=== PATIENT | female | born 1960 | race African-American/Black ===

== ENCOUNTER 2024-10-06 07:25 | Outpatient (CLI) | payer MEDICARE, MEDICAID, SELFPAY ==
--- OUTSIDE RECORDS SUMMARY | 2024-10-06 07:30 | XMS_ITS | Data Portability ---
Author Organization [place] - [employer], Main Office Address [address] [place] [address] Assessment Encounter Date Assessment Date Assessment LastModified by Organization Details LastModified Time 10/15/2023 10/15/2023 Assessment: Nicotine smoke: 03/24 ppd [id number] = 6 pack years Rhinitis Cough Dyspnea RUL consolidation Plan: The following were reviewed and explained to the patient: primary care/referral note [facility] hospitalization 10/06/23 - 10/08/23 fever of 101 and pleuritic chest pain -> RUL consolidation -> discharged on azithromycin and cefdinir until 10/12/[address] 10/04/23 no P. E., 5 mm EULALIO calcified granuloma, RUL consolidation We will obtain old records from Dr. Macario Simpson and [facility]. Repeat chest CT to ensure resolution of RUL consolidation. Cough/Dyspnea workup will be done as follows: Respiratory allergen panel for [facility] Serum IgE Serum total IgG, IgG1, IgG2, IgG3, IgG4 Eseyh-0-eisiytaugh n phenotype and level TB stimulated gamma interferon B-type natriuretic peptide (BNP) Eosinophil count Complete pulmonary function testing (PFT) Advised to continue not to smoke. Continue albuterol HFA as needed. Continue Symbicort HFA 160/4.5 mcg 2 puffs BID. Gargle after use. The patient does not know how to accurately administer the inhalers. Today, the patient was shown how to take these medications. The proper technique for delivering these medications was instructed. The patient expressed a clear understanding and demonstrated back how to use these medications. Without the proper technique, the patient will not reap the benefits of these medications as the contents will not reach the lower airways as intended to be. Adherence to therapy is advocated. Nonadherence may lead to treatment failure, further progression of the condition, and other complications. Hospitals admissions are often the result of individuals not taking prescription medications accurately. Alternatively, greater adherence to medication regimens have shown to lower rates of hospitalization and decrease total medical costs in patients with chronic medical conditions. Advocated influenza vaccination annually and pneumonia vaccination GEORGINA. Advocated weight loss through diet and exercise. Patient's ideal body weight according to height and gender is up to 110 lbs. Encouraged patient to adjust caloric intake to maintain/achieve ideal body weight, emphasizing on fruits, vegetables, whole grains, and fat-free or low-fat products. These include lean meats, poultry, fish, beans, eggs, and nuts and foods that are low in saturated fats, trans-fats, cholesterol, salt (sodium), and glycemic index. Stressed the importance of regular exercise up to the patient's capacity limits. In this case, we recommend 20 min daily walking, 2 days a week of resistance training. Patient to monitor BP daily and bring records to PCP for further management. Follow-up: [address] and PFT Not available 10/15/2023 10:29:52 01/13/2024 01/13/2024 Assessment: Nicotine smoke: 03/24 ppd [id number] = 6 pack years Rhinitis RUL consolidation, resolving 3 mm RUL nodule Plan: The following were reviewed and explained to the patient: [facility] hospitalization 10/06/23 - 10/08/23 fever of 101 and pleuritic chest pain -> RUL consolidation -> discharged on azithromycin and cefdinir until 10/12/23 Lab data 10/15/[address] 10/04/23 no P. E., 5 mm EULALIO calcified granuloma, RUL consolidation Chest CT 10/30/23 significantly decreased RUL consolidation, 3 mm RML nodule PFT 12/17/23 nl FEV1/FVC, FEV1 1.59 L (97%), BD 50 mL = 4%, TLC 3.81 L (99%), RV 1.78 L (121%), DLCO 55%, DLCO/VA 106% Repeat chest CT and methacholine challenge testing ordered. Differential diagnoses for pulmonary nodule: 1. malignant tumor 2. benign tumor 3. inflammatory processes 4. infectious process (viral, atypical bacterial, fungal, atypical mycobacterial) The Fleischner Society pulmonary nodule recommendations below pertain to the follow-up and management of indeterminate pulmonary nodules detected incidentally on CT and are published by the Fleischner Society. The guideline does not apply to lung cancer screening, patients younger than 35 years, or patients with a history of primary cancer or immunosuppression. These recommendations reflect the 2017 revision 4, which supersedes prior versions published in 2005 and 2013. Single solid nodule <6 mm (<100 mm3) *low-risk patients: no routine follow-up required *high-risk patients: optional CT at 12 months (particularly with suspicious nodule morphology and/or upper lobe location) Single solid nodule 6-8 mm (100-250 mm3) *low-risk patients: CT at 6-12 months, then consider CT at 18-24 months *high-risk patients: CT at 6-12 months, then CT at 18-24 months Single solid nodule >8 mm (>250 mm3) *low-risk and high-risk patients: consider CT at 3 months, PET/CT, or tissue sampling Advised to continue not to smoke. Continue albuterol HFA as needed. Continue Symbicort HFA 160/4.5 mcg 2 puffs BID. Gargle after use. The patient does not know how to accurately administer the inhalers. Today, the patient was shown how to take these medications. The proper technique for delivering these medications was instructed. The patient expressed a clear understanding and demonstrated back how to use these medications. Without the proper technique, the patient will not reap the benefits of these medications as the contents will not reach the lower airways as intended to be. Adherence to therapy is advocated. Nonadherence may lead to treatment failure, further progression of the condition, and other complications. Hospitals admissions are often the result of individuals not taking prescription medications accurately. Alternatively, greater adherence to medication regimens have shown to lower rates of hospitalization and decrease total medical costs in patients with chronic medical conditions. Advocated influenza vaccination annually and pneumonia vaccination GEORGINA. Advocated weight loss through diet and exercise. Patient's ideal body weight according to height and gender is up to 110 lbs. Encouraged patient to adjust caloric intake to maintain/achieve ideal body weight, emphasizing on fruits, vegetables, whole grains, and fat-free or low-fat products. These include lean meats, poultry, fish, beans, eggs, and nuts and foods that are low in saturated fats, trans-fats, cholesterol, salt (sodium), and glycemic index. Stressed the importance of regular exercise up to the patient's capacity limits. In this case, we recommend 20 min daily walking, 2 days a week of resistance training. Patient to monitor BP daily and bring records to PCP for further management. Follow-up: 1 week after methacholine challenge testing and chest CT Not available 01/13/2024 09:45:43 07/13/2024 07/13/2024 Assessment: Nicotine smoke: 03/24 ppd [id number] = 6 pack years Rhinitis RUL consolidation, resolving 3 mm RML nodule Plan: The following were reviewed and explained to the patient: [facility] hospitalization 10/06/23 - 10/08/23 fever of 101 and pleuritic chest pain -> RUL consolidation -> discharged on azithromycin and cefdinir until 10/12/23 Lab data 10/15/[address] 10/04/23 no P. E., 5 mm EULALIO calcified granuloma, RUL consolidation Chest CT 10/30/23 significantly decreased RUL consolidation, 3 mm RML nodule PFT 12/17/23 nl FEV1/FVC, FEV1 1.59 L (97%), BD 50 mL = 4%, TLC 3.81 L (99%), RV 1.78 L (121%), DLCO 55%, DLCO/VA 106% Methacholine challenge testing 07/13/24 (-) methacholine challenge up to level 5 Differential diagnoses for pulmonary nodule: 1. malignant tumor 2. benign tumor 3. inflammatory processes 4. infectious process (viral, atypical bacterial, fungal, atypical mycobacterial) The Fleischner Society pulmonary nodule recommendations below pertain to the follow-up and management of indeterminate pulmonary nodules detected incidentally on CT and are published by the Fleischner Society. The guideline does not apply to lung cancer screening, patients younger than 35 years, or patients with a history of primary cancer or immunosuppression. These recommendations reflect the 2017 revision 4, which supersedes prior versions published in 2005 and 2013. Single solid nodule <6 mm (<100 mm3) *low-risk patients: no routine follow-up required *high-risk patients: optional CT at 12 months (particularly with suspicious nodule morphology and/or upper lobe location) Single solid nodule 6-8 mm (100-250 mm3) *low-risk patients: CT at 6-12 months, then consider CT at 18-24 months *high-risk patients: CT at 6-12 months, then CT at 18-24 months Single solid nodule >8 mm (>250 mm3) *low-risk and high-risk patients: consider CT at 3 months, PET/CT, or tissue sampling Repeat chest CT one week before return. Advised to continue not to smoke. Continue albuterol HFA as needed for bronchitic episodes only. Discontinue Symbicort HFA 160/4.5 mcg. The patient does not know how to accurately administer the inhaler. Today, the patient was shown how to take this medication. The proper technique for delivering this medication was instructed. The patient expressed a clear understanding and demonstrated back how to use this medication. Without the proper technique, the patient will not reap the benefits of this medication as the contents will not reach the lower airways as intended to be. Adherence to therapy is advocated. Nonadherence may lead to treatment failure, further progression of the condition, and other complications. Hospitals admissions are often the result of individuals not taking prescription medications accurately. Alternatively, greater adherence to medication regimens have shown to lower rates of hospitalization and decrease total medical costs in patients with chronic medical conditions. Advocated influenza vaccination annually and pneumonia vaccination GEORGINA. Advocated weight loss through diet and exercise. Patient's ideal body weight according to height and gender is up to 110 lbs. Encouraged patient to adjust caloric intake to maintain/achieve ideal body weight, emphasizing on fruits, vegetables, whole grains, and fat-free or low-fat products. These include lean meats, poultry, fish, beans, eggs, and nuts and foods that are low in saturated fats, trans-fats, cholesterol, salt (sodium), and glycemic index. Stressed the importance of regular exercise up to the patient's capacity limits. In this case, we recommend 20 min daily walking, 2 days a week of resistance training. Patient to monitor BP daily and bring records to PCP for further management. Follow-up: 6 months, December 2024 Not available 07/13/2024 13:30:51 Plan of Treatment Reminders Order Date Submit Date Provider Last Modified By Organization Details Last Modified Time Details Appointments Any 15 2024 07:30A Juliana Contreras MD Not available Not available Not available Lab alpha-1-a ntitrypsi n (aat) phenotype , serum 2023 024 [facility] (Lab), [address] [place], [address], 10/21/2023 20:22:49 BNP (B-type natriuret ic peptide), serum or plasma 2023 024 [facility] (Lab), [address] [place], [address], 10/15/2023 18:51:11 ige, total, serum 2023 024 [email or web address] 2 [facility] (Lab), [address] [place], [address], 02/26/2024 13:46:30 tb (M tuberculo sis), ifn-gamma tonja, blood 2023 024 [email or web address] 2 [facility] (Lab), [address] [place], [address], 02/26/2024 13:46:31 eosinophi l count, manual, blood (OBS) 2023 024 2 [facility] (Lab), [address] [place], [address], 02/26/2024 13:46:31 [address] subcl[address] s 1+2+3+4, serum 2023 024 [email or web address] 2 [facility] (Lab), [address] [place], [address], 02/26/2024 13:46:31 respirato ry allergen panel, [facility] A, serum 2023 024 [email or web address] 2 [facility] (Lab), [address] [place], [address], 02/26/2024 13:46:31 respirato ry allergen panel - [facility] b 2023 024 [email or web address] 2 [facility] (Lab), [address] [place], [address], 02/26/2024 13:46:31 Referral None recorded. Procedures None recorded. Surgeries None recorded. Imaging CT, chest, w/o contrast 2024 025 Not available 07/13/2024 13:24:21 CT, chest, w/o contrast - Please call patient to schedule. 2023 024 [email or web address] [facility] ([facility]), [address] [place], [address], 01/20/2024 09:55:15 CT, chest, w/o contrast 2023 024 [facility] [address] [place], [address], 10/30/2023 11:58:44 Medication Orders None recorded. Patient TargetsNo targets recorded. Patient Instructions Encounter Date Encounter Id Patient Instructions Last Modified By Organization Details Last Modified Time 10/15/2023 [id number] complete PFT w/ post bronchodilator spirometry* [email or web address] Not available 12/12/2023 15:18:28 01/13/2024 [id number] methacholine challenge* - Please call patient to schedule. NPAN [id number] per [facility] website. [email or web address] Not available 02/24/2024 16:46:53 Reason for Referral None Reported. Results Created Date Observation Date Name Description Value Unit Range Abnormal Flag Note LastModifiedBy Organization Detail LastModifiedTime 10/15/1910/04/2023 CT, chest , w/ contr ast No observ ation record ed. BARCODE Not Available 2023 12:52:12 10/30/1910/30/2023 CT, chest , w/o contr ast No observ ation record ed. [facility] [address] [place], [address], 10/31/2023 10:15:24 01/08/20 24 12/17/2023 compl ete PFT w/ post [facility] hodil ator butch metry * No observ ation record ed. [facility] ([facility]) [address] [place], [address], 01/08/2024 12:03:27 07/15/19 25 07/13/2024 metha choli ne chall enge* No observ ation record ed. [facility] ([facility]) [address] [place], [address], 07/14/2024 09:44:27 Result Notes None recorded. 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 Medical Equipment None Reported. Allergies Allergen ID Allergen Name Allergen Category Reaction Reaction Severity Criticality Documentation Date Start Date Code Code System Note Provider Name and Address Organization Details Recorded Time 91529 aspirin medicatio n Not available Not available Not available 10/11/2023 1191 RxNorm Ld Contreras MD [address], [address], [employer] 4 14:47:48 Medications Name Sig Start Date Stop Date Status Note LastModified by Organization Details LastModified Time latanoprost 0.005 % eye drops INSTILL 1 DROP IN BOTH EYES EVERY EVENING active Not Available Not Available No t Available atorvastati n 20 mg tablet active Not Available Not Available Not Available ammonium lactate 12 % lotion APPLY TOPICALLY TO THE AFFECTED AREA TWICE DAILY 07/20 completed Not Available Not Available Not Available cetirizine 10 mg tablet TAKE 1 TABLET BY MOUTH EVERY DAY FOR 90 DAYS active Not Available Not Available No t Available azithromyci n 250 mg tablet TAKE 1 TABLET BY MOUTH DAILY 10/14 completed Not Available Not Available Not Available levetiracet am 500 mg tablet TAKE 1 TABLET BY MOUTH TWICE DAILY active Not Available Not Available No t Available meloxicam 15 mg tablet TAKE 1 TABLET BY MOUTH EVERY DAY 10/14 completed Not Available Not Available Not Available phenytoin sodium extended 100 mg capsule TAKE 1 CAPSULE BY MOUTH THREE TIMES DAILY 10/14 completed Not Available Not Available Not Available amlodipine 5 mg tablet 10/14 completed Not Available Not Available Not Available isosorbide mononitrate ER 60 mg tablet,exte nded release 24 hr TAKE 1 TABLET BY MOUTH EVERY DAY active Not Available Not Available No t Available amoxicillin 875 mg tablet TAKE 1 TABLET BY MOUTH EVERY 12 HOURS FOR 10 DAYS 07/20 completed Not Available Not Available Not Available famotidine 20 mg tablet TAKE 1 TABLET BY MOUTH TWICE DAILY NEEDED active Not Available Not Available No t Available baclofen 10 mg tablet TAKE 1 TABLET BY MOUTH TWICE DAILY 10/14 completed Not Available Not Available Not Available amlodipine 10 mg tablet TAKE 1 TABLET BY MOUTH EVERY DAY active Not Available Not Available No t Available pantoprazol e 40 mg tablet,zheng yed release TAKE 1 TABLET BY MOUTH DAILY active Not Available Not Available No t Available montelukast 10 mg tablet TAKE 1 TABLET BY MOUTH EVERY DAY active Not Available Not Available No t Available azelastine 137 mcg (0.1 %) nasal spray USE 2 SPRAYS IN EACH NOSTRIL TWICE DAILY active Not Available Not Available No t Available methylpredn isolone 4 mg tablets in a dose pack FOLLOW PACKAGE DIRECTION S 10/14 completed Not Available Not Available Not Available albuterol sulfate HFA 90 mcg/actuati on aerosol inhaler INHALE 2 PUFFS BY MOUTH EVERY 4 HOURS NEEDED active Not Available Not Available No t Available oxybutynin chloride 5 mg tablet TAKE 1 TABLET BY MOUTH ONCE DAILY IN THE EVENING active Not Available Not Available No t Available cefdinir 300 mg capsule TAKE 1 CAPSULE BY MOUTH TWICE DAILY 10/14 completed Not Available Not Available Not Available losartan 100 mg tablet TAKE 1 TABLET BY MOUTH EVERY DAY active Not Available Not Available No t Available fluticasone propionate 50 mcg/actuati on nasal spray,suspe nsion SHAKE LIQUID AND USE 1 SPRAY IN EACH NOSTRIL TWICE DAILY active Not Available Not Available No t Available Symbicort 160 mcg-4.5 mcg/actuati on HFA aerosol inhaler INHALE 2 PUFFS BY MOUTH TWICE DAILY 07/13 completed Not Available Not Available Not Available Kevinxsherice Inhub 250 mcg-50 mcg/dose powder for inhalation INHALE 1 PUFF BY MOUTH TWICE DAILY active Not Available Not Available No t Available Vitals Date Recorded Heart rate Heart rate Respiratory rate Provider Name and Address Organization Details Last Updated DateTime 07/13/2024 83 /min 83 /min 14 /min Ld Contreras MD [address], [employer], [place], [address], [facility] [employer] 07/13/2024 13:30:28 Date Recorded Body height Body mass index (BMI) Body weight Body temperature Oxygen saturation Oxygen saturation in Arterial blood by Pulse oximetry Systolic And Diastolic Provider Name and Address Organization Details Last Updated DateTime 5 152.4 cm 32.6 kg/m2 20361.9 3 g 98.3 [degF] 98 % 98 % 130/88 mm[Hg] Stephy Martinez MA [facility] [employer] 5 13:00:15 Date Recorded Heart rate Respiratory rate Provider N dai and Address Organization Details Last Updated DateTime 10/15/2023 74 /min 15 /min Ld Contreras MD [address], [employer], [place], [address], [facility] [employer] 10/15/2023 10:07:22 Date Recorded Body weight Body mass index (BMI) Body height Body temperature Oxygen saturation Oxygen saturation in Arterial blood by Pulse oximetry Heart rate Systolic And Diastolic Provider Name and Address Organization Details Last Updated DateTime 4 70110.3 3 g 32.4 kg/m2 152.4 cm 98.1 [degF] 98 % 98 % 74 /min 138/74 mm[Hg] Greg Rangel CMA [facility] [employer] 4 09:56:29 Date Recorded Heart rate Respiratory rate Provider N dai and Address Organization Details Last Updated DateTime 01/13/2024 68 /min 15 /min Ld Contreras MD [address], [place], [address], [facility] [employer] 01/13/2024 09:38:13 Date Recorded Body height Body mass index (BMI) Body weight Body temperature Heart rate Oxygen saturation Oxygen saturation in Arterial blood by Pulse oximetry Systolic And Diastolic Provider Name and Address Organization Details Last Updated DateTime 4 152.4 cm 33.2 kg/m2 49576.7 g 98 [degF] 68 /min 99 % 99 % 128/72 mm[Hg] Stephy Martinez MA [facility] [employer] 09:29:43 Social History Question Answer Notes LastModified by Organizat ion Details LastModified Time Tobacco Smoking Status Former Smoker CHAU Cuevas, [facility] [employer] 10/15/2023 10:05:19 What Is Your Level Of Caffeine Consumption? Occasional Information not available 01/13/2024 In The 14 Days Before Symptom Onset, Have You Had Close Contact With A Laboratory-confir med COVID-19 While That Case Was Ill? No Information not available 01/13/2024 In The 14 Days Before Symptom Onset, Have You Had Close Contact With A Person Who Is Under Investigation For COVID-19 While That Person Was Ill? No Information not available 01/13/2024 What Type Of Diet Are You Following? REGULAR Information not available 01/13/2024 Do You Have An Electrostatic Air Filter? No Information not available 01/13/2024 When Did You Quit Smoking? 1-5yearssincel gibran Information not available 01/13/2024 Do You Have A Humidifier? No Information not available 01/13/2024 Do You Have Moisture Problems In Your Home? No Information not available 01/13/2024 What Was The Date Of Your Most Recent Tobacco Screening? 07/13/2024 Information not available 07/13/2024 Do You Have Any Pets? No Information not available 01/13/2024 Do You Use Your Seat Belt Or Car Seat Routinely? Yes Information not available 01/13/2024 Do You Have Smoke And Carbon Monoxide Detectors In Your Home? Yes Information not available 01/13/2024 Are You Passively Exposed To Smoke? No Information no t available 01/13/2024 Do You Use Sunscreen Routinely? No Information not available 01/13/2024 Have You Recently Traveled Abroad? No Information not available 01/13/2024 Do You Have Any Dietary Restrictions? No Information not available 01/13/2024 Sex: Unknown Functional Status Question Answer Note LastModified by Organizat ion Details LastModified Time Do you use any illicit or recreational drugs? Yes Marijuana [email or web address] Information not available 10/15/2023 What is your level of alcohol consumption? Occasional [email or web address] Information not available 10/15/2023 Are you currently employed? No Retired Information not available 01/13/2024 Have you been exposed to chemicals or toxins? not that aware of Information not available 01/13/2024 What is your exercise level? Occasional Information not available 01/13/2024 Mental Status Question Answer Note LastModified by Organization D etails LastModified Time Do you feel stressed (tense, restless, nervous, or anxious, or unable to sleep at night)? [id number] Information not available 01/13/2024 Family History Relationship Description Onset Age of this Age Resolved Age Notes LastModified by Organization Details LastModified Time Father Hypertensive disorder [email or web address] Not available 2023 10:04:53 Father Glaucoma Not available 0 10/15/2023 10:22:46 Mother Congestive heart failure [email or web address] Not available 2023 10:04:39 Mother Asthma Not available 09:41:47 Maternal Aunt Congestive heart failure Not available 2023 10:22:23 Son Asthma Not available 09:41:39 Medical History No medical history recorded. Gynecological HistoryNo gynecological history recorded. Obstetrics History GPAL:G 0 P 0 0 0 0 Past Encounters Encounter ID Performer Location Encounter Start Date Encounter Closed Date Diagnosis/Indication Diagnosis SNOMED-CT Code Diagnosis ICD10 Code Diagnosis Note [id number] Ld Contreras MD [facility] [address] [address] 10/15/2023 09:18:19 10/15/2023 16:23:23 Lung consolidation 93946332 J18.1 R91.8 Dyspnea on exertion 6084 5006 R06.09 R05.9 T78.40XA D89.9 [id number] dL Contreras MD [facility] [address] [address] 01/13/2024 08:56:54 01/13/2024 11:14:14 Lung consolidation 89885247 J18.1 R91.8 Dyspnea on exertion 6084 5006 R06.09 R05.9 T78.40XA D89.9 Solitary n odule of lung [id number] R91.1 [id number] Ld Contreras MD [facility] [address] [address] 07/13/2024 12:49:16 07/14/2024 10:42:03 Dyspnea on exertion [id number] R06.09 Solitary n odule of lung [id number] R91.1 Health Concerns Section Related Observation LastModified by Organization Detai ls LastModified Time None Recorded Concern Status LastModified by Organization Details LastModified Time None Recorded Advance Directives Directive None Recorded Payers Insurance Date Sequence Insurance Name Policy Number Policy Wray Covered Member ID Wray Member ID Guarantor Name 08/22/2024 1 MEDICARE-DC (MEDICARE) Zeina Tucker [id number] Zeina Martínez 10/15/2023 1 *SELF PAY* Fr aide Martínez 08/21/2024 1 [facility] ON OR AFTER 09/15/20 (MEDICAID REPLACEMENT - HMO) Zeina Tucker [id number] Zeina Martínez Notes Date Note Type Note Provider Name and Address Organization Details Recorded Time 10/15/2023 text/html Primary care/Referring provider: Mani Daniels MD; Macario Simpson MD The patient was hospitalized at [facility] from 10/06/23 to 10/08/23 for fever of 101 and pleuritic chest pain. She was found to have RUL consolidation. She was treated and discharged on azithromycin and cefdinir. All her symptoms have subsided. Patient is here to go over shortness of breath evaluation/managemen t. Initial development of shortness of breath: uration of shortness of breath: 1 yearCondition of shortness of breath: stableTiming of shortness of breath: noneFrequency: once a weekLimits activities: yesAggravating factors: doing yard workAlleviating factors: rest Modified [employer] (mMRC) Dyspnea Scale - Grade 1Grade 0 I only get breathless with strenuous exercise .Grade 1 I get short of breath when hurrying on the level or walking up a slight hill .Grade 2 I walk slower than people of the same age on the level because of breathlessness or have to stop for breath when walking at my own pace on the level .Grade 3 I stop for breath after walking about 100 yards or after a few minutes on the level .Grade 4 I am too breathless to leave the house or I am breathless when dressing . Treatment history: Albuterol HFA as needed since 11/2022 Symbicort HFA 160/4.5 mcg 2 puffs BID since 11/2022 Other symptoms:Drooling: noDysarthria: noNeck pain: noOdynophagia: noDysphagia: noWeak mastication: noFacial weakness: noNasal speech: noProtruding tongue: noProductive cough: noWheezing: yesChest tightness: yesOrthopnea: noFrequent throat clearing or swallowing: noPalpitations: noHeartburn: noEdema: yes Environmental exposures:Nicotine smoke: 03/24 ppd 7916-7180 = 6 pack yearsPaint: noDye: noDust mites: yesMold: noDamp basement: noWood burning stove: noAnimal dander: noCockroaches: noPollen: yesArsenic: noAsbestos: noBeryllium: noCadmium: noChromium: noCoal smoke: noDiesel fumes: noNickel: noSilica: noSoot: no EPWORTH SLEEPINESS SCALE (ESS) CHANCE OF DOZING SCORE0 = would never doze1 = slight chance of dozing2 = moderate chance of dozing3 = high chance of dozing SITUATION AND CHANCE OF DOZINGSitting and reading - 0Watching television - 0Sitting inactive in a public place (e.g. a theater or meeting) - 0As a passenger in a car for an hour without a break - 0Lying down to rest in the afternoon when circumstances permit - 0Sitting and talking to someone - 0Sitting quietly after lunch without alcohol - 0In a car, while stopped for a few minutes in the traffic - 0TOTAL SCORE 0Subjectively, patient has no chance of dozing. Ld Contreras MD [address] [place] [address], [facility] [address], [place], [address], [facility] 10/15/2023 10:30:21 01/13/2024 text/html Primary care/Referring provider: Mani Daniels MD; Macario Simpson MD The patient was hospitalized at [facility] from 10/06/23 to 10/08/23 for fever of 101 and pleuritic chest pain. She was found to have RUL consolidation. She was treated and discharged on azithromycin and cefdinir. All her symptoms have subsided. Patient is here to go over her chest CT, PFT and lab work as part of her shortness of breath evaluation/managemen t. Initial development of shortness of breath: uration of shortness of breath: 1 yearCondition of shortness of breath: stableTiming of shortness of breath: noneFrequency: once a weekLimits activities: yesAggravating factors: doing yard workAlleviating factors: rest Modified Medical Research [employer] (mMRC) Dyspnea Scale - Grade 1Grade 0 I only get breathless with strenuous exercise .Grade 1 I get short of breath when hurrying on the level or walking up a slight hill .Grade 2 I walk slower than people of the same age on the level because of breathlessness or have to stop for breath when walking at my own pace on the level .Grade 3 I stop for breath after walking about 100 yards or after a few minutes on the level .Grade 4 I am too breathless to leave the house or I am breathless when dressing . Treatment history: Albuterol HFA as needed since 11/2022 Symbicort HFA 160/4.5 mcg 2 puffs BID since 11/2022 Other symptoms:Drooling: noDysarthria: noNeck pain: noOdynophagia: noDysphagia: noWeak mastication: noFacial weakness: noNasal speech: noProtruding tongue: noProductive cough: noWheezing: yesChest tightness: yesOrthopnea: noFrequent throat clearing or swallowing: noPalpitations: noHeartburn: noEdema: yes Environmental exposures:Nicotine smoke: 03/24 ppd 3286-8640 = 6 pack yearsPaint: noDye: noDust mites: yesMold: noDamp basement: noWood burning stove: noAnimal dander: noCockroaches: noPollen: yesArsenic: noAsbestos: noBeryllium: noCadmium: noChromium: noCoal smoke: noDiesel fumes: noNickel: noSilica: noSoot: no EPWORTH SLEEPINESS SCALE (ESS) CHANCE OF DOZING SCORE0 = would never doze1 = slight chance of dozing2 = moderate chance of dozing3 = high chance of dozing SITUATION AND CHANCE OF DOZINGSitting and reading - 0Watching television - 0Sitting inactive in a public place (e.g. a theater or meeting) - 0As a passenger in a car for an hour without a break - 0Lying down to rest in the afternoon when circumstances permit - 0Sitting and talking to someone - 0Sitting quietly after lunch without alcohol - 0In a car, while stopped for a few minutes in the traffic - 0TOTAL SCORE 0Subjectively, patient has no chance of dozing. Ld Contreras MD [address] [place] [address], [place], [address], [facility] 01/13/2024 09:52:04 07/13/2024 text/html Primary care/Referring provider: Mani Daniels MD; Macario Simpson MD The patient was hospitalized at [facility] from 10/06/23 to 10/08/23 for fever of 101 and pleuritic chest pain. She was found to have RUL consolidation. She was treated and discharged on azithromycin and cefdinir. All her symptoms have subsided. Patient is here to go over her chest CT, PFT and lab work as part of her shortness of breath evaluation/managemen t. Initial development of shortness of breath: uration of shortness of breath: 1 yearCondition of shortness of breath: stableTiming of shortness of breath: noneFrequency: once a weekLimits activities: yesAggravating factors: doing yard workAlleviating factors: rest Modified Medical Research [employer] (mMRC) Dyspnea Scale - Grade 1Grade 0 I only get breathless with strenuous exercise .Grade 1 I get short of breath when hurrying on the level or walking up a slight hill .Grade 2 I walk slower than people of the same age on the level because of breathlessness or have to stop for breath when walking at my own pace on the level .Grade 3 I stop for breath after walking about 100 yards or after a few minutes on the level .Grade 4 I am too breathless to leave the house or I am breathless when dressing . Treatment history: Albuterol HFA as needed since 11/2022 Symbicort HFA 160/4.5 mcg 2 puffs BID since 11/2022 Other symptoms:Drooling: noDysarthria: noNeck pain: noOdynophagia: noDysphagia: noWeak mastication: noFacial weakness: noNasal speech: noProtruding tongue: noProductive cough: noWheezing: yesChest tightness: yesOrthopnea: noFrequent throat clearing or swallowing: noPalpitations: noHeartburn: noEdema: yes Environmental exposures:Nicotine smoke: 03/24 ppd 6681-8336 = 6 pack yearsPaint: noDye: noDust mites: yesMold: noDamp basement: noWood burning stove: noAnimal dander: noCockroaches: noPollen: yesArsenic: noAsbestos: noBeryllium: noCadmium: noChromium: noCoal smoke: noDiesel fumes: noNickel: noSilica: noSoot: no EPWORTH SLEEPINESS SCALE (ESS) CHANCE OF DOZING SCORE0 = would never doze1 = slight chance of dozing2 = moderate chance of dozing3 = high chance of dozing SITUATION AND CHANCE OF DOZINGSitting and reading - 0Watching television - 0Sitting inactive in a public place (e.g. a theater or meeting) - 0As a passenger in a car for an hour without a break - 0Lying down to rest in the afternoon when circumstances permit - 0Sitting and talking to someone - 0Sitting quietly after lunch without alcohol - 0In a car, while stopped for a few minutes in the traffic - 0TOTAL SCORE 0Subjectively, patient has no chance of dozing. Ld Contreras MD [address] [facility] [address], [place], [address], [facility] 07/13/2024 13:31:35 OBGyn Episode No OBEpisode recorded.
--- OUTSIDE RECORDS SUMMARY | 2024-10-06 07:30 | XMS_ITS | Clinical Summary ---
Author Organization [facility] Address [address] [facility] [place] [address] Care Team Providers Care Patient Support Associate Name Role Phone Mani Daniels Primary Care Provider [phone] Source Comments [facility],non-owned Affiliates and Associated Physician Practices is amultiple site organization consisting of ambulatory clinics and hospital sitesin [place], [place], [place] and [place]. This disclosure is being madepursuant to the Care Everywhere program and may not contain all information available regarding this patient. Last updated 17.[facility] Allergies Active Allergy Reactions Criticality Noted Date Comments Aspirin Nausea and/or Vomiting 12/11/2018 Medications * Be aware that medications may not be up to date on this document. Alwaysverify current medications with the patient. amLODIPine (NORVASC) 10 MG tablet Take 10 mg by mouth once daily Active levETIRAcetam (KEPPRA) 500 MG tabletIndicatio ns:Generalized epilepsy (HCC) Take 1 tablet by mouth 2 times daily 60 tablet 5 12/11/2018 Active glecaprevir-pib rentasvir (MAVYRET) 100-40 MG tablet Take 3 tablets by mouth daily with food 84 tablet 1 01/22/2019 Active Active Problems Problem Noted Date Diagnosed Date Chronic hepatitis C without hepatic coma 019 Overview (01/06/2019): Hepatitis B core antibody is reactive 01/02/19 Fibroscan CAP 322, E 69.7 kPa Other hyperlipidemia 10/31/2018 Essential hypertension 10/31/2018 Epilepsy 10/31/2018 Osteoarthritis 10/31/2018 Family History Medical History Relation Name Comments Diabetes - Type 2 Father CAD (Coronary Artery Disease) Mother fron [place] Relation Name Status Comments Father Mother Social History Tobacco Use Types Packs/Day Years Used Date Smoking Tobacco: Every Day Cigarettes Smokeless Tobacco: Never Comments:2-3 cigarettes a da y Alcohol Use Standard Drinks/Week Comments Yes 0 (1 standard drink = 0.6 oz pur e alcohol) Once a month Comments Unknown Sex and Gender Information Value Date Recorded Sex Assigned at Not on file Legal Sex Female 8:34 AM CDT Gender Identity Not on file Sexual Orientation Not on file Occupation Industry Job Start Date Job End Date disability Not on file Not on file Not on file Last Filed Vital Signs Vital Sign Reading Time Taken Comments Blood Pressure 132/88 01/02/2019 10:24 AM CDT Pulse 57 01/02/2019 10:24 AM CDT Temperature 37 C (98.6 F) 01/02/2019 10:24 AM CDT Respiratory Rate 18 01/02/2019 10:24 AM CDT Oxygen Saturation 100% 01/02/2019 10:24 AM CDT Inhaled Oxygen Concentration - - Weight 66.8 kg (147 lb 3.2 oz) 01/02/2019 10:24 AM CDT Height 149.9 cm (4' 11) 01/02/2019 10:24 AM CDT Body Mass Index 29.73 01/02/2019 10:24 AM CDT Plan of Treatment Health Maintenance Due Date Last Done Comments BONE DENSITY TESTING 1959 COLOGUARD (AGES 45-75) - COLON CA SCREENING 1959 COLON MONITORING 1959 COLONOSCOPY - COLON CA SCREENING 1959 CT COLONOGRAPHY - COLON CA SCREENING 1959 Colorectal Cancer Screening 1959 FIT - COLON CA SCREENING 1959 FLEX SIG - COLON CA SCREENING 1959 LIPID TESTING 1959 MAMMOGRAM 1959 DTAP/TDAP/TD VACCINES (1 - Tdap) 1978 PNEUMOCOCCAL VACCINE 50+ (1 of 2 - PCV) 1978 PAP SMEAR 01/26/1980 ZOSTER VACCINE (1 of 2) 2009 HEPATITIS B VACCINE (1 of 3 - Risk 3-dose series) 2019 Respiratory Syncytial Virus (RSV) Vaccine Pt: or over 60 yrs (1 - Risk 60-74 years 1-dose series) 2019 SCREENING FOR DIABETES 10/31/2021 10/31/2018 COVID-19 VACCINE ( season) 2023 DEPRESSION SCREENING 03/18/2024 INFLUENZA VACCINE (#1) 2024 HIV SCREENING Completed 10/31/2018 HEPATITIS C SCREENING Completed 04/21/2019 , 01/02/2019, 01/02/2019, Additional history exists HIB VACCINE Aged Out No longer eligi ble based on patient's age to complete this topic HPV VACCINE Aged Out No longer eligi ble based on patient's age to complete this topic MENINGOCOCCAL (Group B) VACCINE SHARED DECISION-MAKING Aged Out No longer eligible based on patient's age to complete this topic MENINGOCOCCAL GROUPS A/C/Y/W VACCINE Aged Out No longer eligible based on patient's age to complete this topic Procedures Procedure Name Priority Date/Time Associated Diagnosis Comments COMPREHENSIVE METABOLIC PANEL Routine 10/31/2018 11:53 AM CDT Chronic hepatitis C without hepatic coma HEPATITIS C GENOTYPE Routine 10/31/2018 11:53 AM CDT Chronic hepatitis C without hepatic coma HIV-1 HIV-2 ANTIGEN/ANTIBODY Routine 10/31/2018 11:53 AM CDT Chronic hepatitis C without hepatic coma from Last 3 Months or Most Recently Relevant to Health Maintenance Results * HIV-1 HIV-2 ANTIGEN/ANTIBODY (10/31/2018 11:53 AM CDT) HIV Antigen/Antibod y 1 & 2 Non-reacti ve Non-react ofelia 10/31/2018 12:51 PM CDT [facility] Comment: Neither HIV-1 p24 Antigen nor HIV-1/HIV-2 Antibodies are detected. Blood BLOOD SPECIMEN / Unknown Lab Venipuncture / Unknown 10/31/2018 11:53 AM CDT 10/31/2018 12:03 PM CDT us Reta Osborne SITE PROJECT MANAGER[employer] [facility] - HEMATOLOGY ORD ERABLES Final Result [address] [phone] * HEPATITIS C GENOTYPE (10/31/2018 11:53 AM CDT) Hepatitis C Genotype Indeterminate 11/04/2018 11:45 AM CDT [facility] ([facility]) Comment: Hepatitis C GENOTYPING IS INDETERMINATE. This test may be unsuccessful if the HCV RNA viral load is less than log 3.6 or 4000 IU per mL. Repeat testing may be appropriate if and when the viral load becomes greater than log 3.6 or 4000 IU/mL. In addition to low viral load, other conditions, such as PCR inhibitors, viral genetic variation, etc., may cause RT-PCR failure resulting in an indeterminate result. INTERPRETIVE INFORMATION: Hepatitis C Genotyping Hepatitis C Viral RNA is tested using reverse salt cutter polymerase chain reaction (RT-PCR) to amplify a specific portion of the 5' untranslated region (5' UTR) of the viral genome. The amplified nucleic acid is sequenced bi-directionally using dye-terminator chemistry (Sporterpilot). Sequencing data is compared to a database of characterized sequences. Isolates of hepatitis C virus are grouped into six major genotypes (1-6). These genotypes are subtyped according to sequence characteristics. Due to high conservation of the 5' un-translated region of the HCV genome, this test has limitations in differentiating subtype 1a from 1b. Therefore, these subtypes will be reported as 1a or 1b. In rare instances, Type 6 virus may be misclassified as Type 1. Test developed and characteristics determined by [facility] ([facility]). See Compliance Statement B: [facility]/ Performed by [facility] ([facility]), [address] [place] [address] [id number] [email or web address], Jovanny Larsen MD, Lab. Director Blood BLOOD SPECIMEN / Unknown Lab Venipuncture / Unknown 10/31/2018 11:53 AM CDT 10/31/2018 12:04 PM CDT us Reta Osborne SITE PROJECT MANAGER-[employer]IE [employer] [facility] - CHEMISTRY ELAN GOODSON Final Result [facility] ([facility]) [address] [place] [address], [facility] * (ABNORMAL) COMPREHENSIVE METABOLIC PANEL (10/31/2018 11:53 AM [facility]) BUN 5(L) 7 - 26 mg/dL 10/31/2018 12:26 PM [facility] Creatinine 0.8 0.6 - 1.2 mg/dL 10/31/2018 12:26 PM [facility] Sodium 139 136 - 145 mmol/L 10/31/2018 12:26 PM [facility] Potassium 4.0 3.5 - 4.5 mmol/L 10/31/2018 12:26 PM [facility] Chloride 106 98 - 107 mmol/L 10/31/2018 12:26 PM [facility] CO2 23 22 - 29 mmol/L 10/31/2018 12:26 PM [facility] Glucose 93 70 - 115 mg/dL 10/31/2018 12: PM [facility] Calcium 9.2 8.4 - 10.2 mg/dL 10/31/2018 12:26 PM [facility] Protein Total 9.4(H) 6.0 - 8.3 g/dL 10/31/2018 12:26 PM [facility] Albumin 3.0(L) 3.4 - 5.0 g/dL 10/31/2018 12:26 PM [facility] Bilirubin Total 0.9 0.2 - 1.2 mg/dL 10/31/2018 12:26 PM [facility] Alkaline Phosphatase 105 40 - 150 Units/L 10/31/2018 12:26 PM [facility] ALT 34 0 - 55 Units/L 10/31/2018 12:26 PM [facility] AST 94(H) 5 - 34 Units/L 10/31/2018 12:26 PM [facility] Anion Gap 14 8 - 18 10/31/2018 12:26 PM [facility] BUN/Creatinine Ratio 6(L) 7 - 23 10/31/2018 12:26 PM [facility] Osmolality Calculated 285 270 - 300 mOsm/kg 10/31/2018 12:26 PM [facility] Albumin/Globulin Ratio 0.5(L) 1.1 - 2.3 10/31/2018 12:26 PM [facility] eGFR >60 >60 mL/min/1.7 3 m2 10/31/2018 12:26 PM CDT [facility] Blood BLOOD SPECIMEN / Unknown Lab Venipuncture / Unknown 10/31/2018 11:53 AM CDT 10/31/2018 12:03 PM CDT Reta Osborne SITE PROJECT MANAGER-[employer]IE [employer] [facility] - CHEMISTRY ELAN GOODSON Final Result Performing Organization Address City/State/[facility] Co de Phone Number [facility] [address] [phone] from Last 3 Months or Most Recently Relevant to Health Maintenance Insurance Care Teams Patient Support Associate Relationship Specialty Start Date End Date Mani Daniels [address] [place] [phone] PCP - General 10/31/18
== END 2024-10-06 07:26 | disposition home or self-care (01) ==
LOC: ANHAUDIO 07:28
PROVIDERS: PCP Otolaryngology; Visit Provider Otolaryngology
DX: H93.8X1 Other specified disorders of right ear (principal); H93.11 Tinnitus, right ear; R42 Dizziness and giddiness
CPT/HCPCS: 92557; 92567